=== PATIENT | female | born 2000 | race Two or more races ===

== ENCOUNTER 2020-11-06 23:23 | Emergency (ER) | payer OTHER ==
[~2020-11-06] VITALS: Ht 172.7 cm; Wt 64.9 kg
[2020-11-06] MEDS ORDERED: DEXAMETHASONE 4 MG TABLET ONE (23:31)
[2020-11-07] MEDS ORDERED: DEXAMETHASONE 4 MG TABLET PO ONE
[2020-11-07 00:42] VITALS: BP 116/72
== END 2020-11-07 00:44 | disposition home or self-care (01) ==
LOC: ED 23:53
DX: J02.0 Streptococcal pharyngitis (principal); Z20.822 Contact with and (suspected) exposure to COVID-19
CPT/HCPCS: 87081; 87147; 87880; 99283; U0003; U0005